=== PATIENT | female | born 1975 | race Caucasian/White ===

== ENCOUNTER 2017-01-05 19:33 | Emergency (ER) | payer SELFPAY ==
--- NOTE | ~2017-01-05 | ER ---
PATIENT'S NAME: TELMA ARIZMENDI [facility] AGE: 41 Y [address] ROOM: [place] [address] LOCATION: [facility] ADMIT DATE: 01/05/2017 ER/Outpatient Report DISCHARGE DATE: 01/05/2017 FAMILY PHYSICIAN: PHYSICIAN, NO ATTENDING PHYSICIAN: Carrol Prado Time of Arrival: 1933 hours. Time of Evaluation: 1945 hours. CHIEF COMPLAINT: Abdominal cramping and irregular periods. HISTORY OF PRESENT ILLNESS: This is a 41-year-old female, who presents to the ER, who states she has been having severe abdominal cramping for the past 12 hours. She states she has had irregular periods just last few months. She states she has gotten her periods 5 times in the last couple of months. She states the length of them have ranged from anywhere from a couple of days up to 7 days in a row. She states that she got a lot of cramping, pressure pain. She states she does not have a lot of vaginal bleeding and has not been soaking through tampon. She denies any other unusual vaginal discharge or odor. She denies any pain with intercourse. The patient denies any fever or chills. No troubles with urination or bowel movements. She states she maybe feels little bit nauseated and she states she had to call in sick from work tonight. ALLERGIES: PAMPRIN. PAST MEDICAL HISTORY: Endometriosis and acid reflux. SOCIAL HISTORY: She smokes half pack of a day for the last 21 years. Smokes marijuana. REVIEW OF SYSTEMS: A 10-point review of systems was completed and was negative with the exception of those discussed in the HPI. PHYSICAL EXAMINATION: VITAL SIGNS: Height 5 feet and 6 inches stated, weight 88.5 kg taken, blood pressure is 132/73, pulse 86, respirations 18, temperature 99.6 degrees tympanically, and saturations 98% on room air. Gavin Coma Score is 15. GENERAL: An alert female, in no acute distress. HEENT: Head: Normocephalic. Eyes: Pupils are equal and reactive to light. She does display moist mucous membranes. PATIENT'S NAME: TELMA ARIZMENDI [facility] AGE: 41 Y [address] ROOM: [place] [address] LOCATION: [facility] ADMIT DATE: 01/05/2017 ER/Outpatient Report DISCHARGE DATE: 01/05/2017 FAMILY PHYSICIAN: PHYSICIAN, NO ATTENDING PHYSICIAN: Carrol Prado LUNGS: Clear to auscultation bilaterally. No wheezes or crackles. Normal respiratory effort. HEART: Regular rate and rhythm. No lifts, thrills, or murmurs. ABDOMEN: Soft. She has mild tenderness in her suprapubic area with palpation. She has good bowel sounds throughout. No masses are palpated. : The patient did not want that done this evening. LABORATORY DATA AND X-RAYS: CBC: White count is 6.5, hemoglobin is 12.7, platelets are 271, and ANC is 3.6. CMS: Glucose is 105, otherwise unremarkable. Urine HCG was negative. Urinalysis: Leukocytes 100 and nitrites positive. UA micro: White blood cells 10 to 20, red blood cells packed field, epithelial 5 to 10, and bacteria many. Ultrasound was done, does show that she has cysts on her right ovary, one of them is hemorrhagic. This is reported by hazmat technician. IMPRESSION: 1. Urinary tract infection. 2. Right ovarian cyst. ASSESSMENT AND PLAN: We did watch the patient here in the emergency room for quite some time. She rested comfortably here her entire stay. We did give the patient a shot of Toradol 60 mg IM here in the ER. I will dismiss her to home with prescription for Bactrim to use as directed as well as a work note. She needs to continue to push fluids, Tylenol or ibuprofen as needed, and follow up with her primary care physician for followup care. The patient understands and agrees with care. WINDY AVENDAÑO PA-C FOR [facility]/suly /[id number] d: 01/06/17 0144 t: 01/07/17 1811, OUTPATIENT REPORT
[2017-01-05 20:29] LABS: BASOPHIL % 0.5 %; EOSINOPHIL # 0.3 K/uL (0.0-0.5); HEMATOCRIT 37.1 % (33.0-46.0); HEMOGLOBIN 12.7 g/dL (10.0-15.0); IMMATURE GRANULOCYTE % 0.3 %; LYMPHOCYTE % 31.5 %; MCH 31.7 pg (27.0-34.0); MCHC 34.2 gm/dL (32.0-36.5); MCV 92.5 fl (83.0-98.0); MONOCYTE # 0.5 K/uL (0.0-1.0); MONOCYTE % 8.3 %; MPV 9.2 fl (9.4-12.4); NEUTROPHIL # (ANC) 3.6 K/uL (1.8-7.8); NEUTROPHIL % 55.4 %; NRBC % 0 /100WBC (0-0.00); PLATELET COUNT 271 K/uL (150-450); RBC 4.01 M/uL (3.50-5.50); RDW-CV 14.2 % (11.9-14.6); WBC 6.5 K/uL (4.0-11.0)
[2017-01-05 20:36] LABS: BLOOD URINE 250 /UL (NEGATIVE); COLOR URINE RED (YELLOW); GLUCOSE URINE NEGATIVE (NEGATIVE); KETONE URINE NEGATIVE (NEGATIVE); LEUKOCYTES URINE 100 /UL (NEGATIVE); NITRITE URINE POSITIVE (NEGATIVE); PROTEIN URINE 100 mg/dL (NEGATIVE); TURBIDITY URINE 3+ (CLEAR); UROBILINOGEN URINE 4 mg/dL (NORMAL)
[2017-01-05 20:45] LABS: BACTERIA URINE MANY (NEGATIVE); MUCUS URINE 1+ (NEGATIVE); RBC URINE PACKED FIELD #/HPF (NEGATIVE)
[2017-01-05 20:46] LABS: ALBUMIN 3.2 gm/dL (3.5-5.0); ALK PHOS 59 IU/L (33-138); ALT 59 IU/L (12-78); ANION GAP 11.8 (10.0-19.0); AST 33 IU/L (10-40); BLOOD UREA NITROGEN 12 mg/dL (6-24); CALCIUM 8.1 mg/dL (8.5-10.5); CHLORIDE 111 mMol/L (96-110); CO2 24 mMol/L (22-32); CREATININE 0.6 mg/dL (0.5-1.1); ESTIMATED GFR (MDRD EQUATION) > 60; POTASSIUM 3.8 mMol/L (3.7-5.1); SODIUM 143 mMol/L (135-145); TOTAL BILIRUBIN 0.3 mg/dL (0.0-1.5); TOTAL PROTEIN 6.6 g/dL (6.0-8.4)
== END 2017-01-05 21:15 | disposition disaster alternative care site (69) ==
LOC: GMED 19:33
PROVIDERS: Physician Assistant Medical
DX: N83.201 Unspecified ovarian cyst, right side (principal); N39.0 Urinary tract infection, site not specified; N80.9 Endometriosis, unspecified; K21.9 Gastro-esophageal reflux disease without esophagitis; F12.10 Cannabis abuse, uncomplicated; F17.210 Nicotine dependence, cigarettes, uncomplicated; Z79.899 Other long term (current) drug therapy; Z88.8 Allergy status to other drugs, medicaments and biological substances
CPT/HCPCS: J1885